=== PATIENT | female | born 1960 | race Hispanic/Latino ===

== ENCOUNTER 2020-01-30 19:12 | Emergency (ER) | payer SELFPAY ==
--- OUTSIDE RECORDS SUMMARY | 2020-01-30 19:14 | XMS REPORT ---
Author Author Admin, [place] Organization Unknown Address Unknown Phone Unavailable PROBLEMS Condition Status Date Provider Notes Vitamin D deficiency active Carter Gallardo Vaginal spotting active Carter Gallardo Rhinosinusitis, acute active Carter Gallardo Elevated creatinine active Carter Gallardo Abnormal cervical Pap ASCUS (atypical squamous cells undetermined significance) active Carter Gallardo 02/12/2019, HPV negative Osteoporosis active Carter Gallardo Lung nodule active Carter Gallardo Sicca syndrome active Carter Gallardo Sjogren's syndrome active Carter Gallardo Urge incontinence active Carter Gallardo Hypertension active Carter Gallardo Rheumatoid arthritis, chronic active Carter Gallardo BMI 22.0-22.9 active Carter Gallardo ENCOUNTERS Date Type Provider Location Encounter Diagnosis - Ambulatory Encounter Rickey Vicente [facility] OB UNK - Ambulatory Encounter Rickey Vicente [facility] OB UNK - Ambulatory Encounter Rickey Gainesce A Pearce [facility] OB UNK - Ambulatory Encounter Rekha A Pearce [facility] OB UNK - Ambulatory Encounter Rickey Gainesce A Pearce [facility] OB UNK - Ambulatory Encounter Florina Borges [facility] UNK - Ambulatory Encounter Carter Silva [facility] Vitamin D deficiency - Ambulatory Encounter Carter Valero [facility] UNK - Ambulatory Encounter Carter Gallardo [facility] UNK - Ambulatory Encounter Carter Hooverna [facility] Rhinosinusitis, acuteVaginal spotting - Ambulatory Encounter Carter Gallardo [facility] UNK - Ambulatory Encounter Saray Butler Carter Gallardo [facility] Elevated creatinine - Ambulatory Encounter Carter Valero Saray Butler [facility] - [facility] Carter Gallardo [facility] UNK - Ambulatory Encounter Carter Gallardo [facility] UNK - Ambulatory Encounter Carter Gallardo Lore Cervantes Tatiana [facility] BMI 22.0- 22.9Rheumatoid arthritis, chronicHypertensionUrge incontinenceSjogren's syndromeSicca syndromeLung noduleOsteoporosisAbnormal cervical Pap ASCUS (atypical squamous cells undetermined significance) VITAL SIGNS No Information Available Allergies No Known Allergy Information REASON FOR REFERRAL No Information Available RESULTS Date Observation Value Provider Reference Range Interpretation Location beta HCG, urine, semiquantitative negative Rekha A Pearce urine culture No growth [facility] " vitamin D 25-hydroxy, serum 15.8 ng/mL [facility] 30.0-100.0 Low " urinalysis, microscopic examination MICNIP [facility] " nitrate, urine Negative [facility] Negative " urobilinogen, urine, semiquantitative (dipstick) 0.2 [facility] 0.2-1.0 " bilirubin, urine Negative [facility] Negative " ketones, urine, by test strip Negative [facility] Negative " glucose, urine, semiquantitative Negative [facility] Negative " protein, urine, semiquantitative (dipstick) Negative [facility] Negative/Trace " leukocyte esterase, urine, by dipstick Negative [facility] Negative " appearance, urine Clear [facility] Clear " urine color Yellow [facility] Yellow " pH, urine, semiquantitative 7.0 [facility] 5.0-7.5 " specific gravity, body fluid 1.005 [facility] 1.005-1.030 " alanine aminotransferase (SGPT), serum 16 1/L [facility] 0-32 " aspartate aminotransferase (SGOT), serum 26 1/L [facility] 0-40 " alkaline phosphatase, serum 95 1/L [facility] 39-117 " bilirubin, serum, total <0.2 mg/dL [facility] 0.0-1.2 " albumin/globulin ratio, serum 1.1 [facility] 1.2-2.2 Low " globulin, serum 3.2 [facility] 1.5-4.5 " albumin, serum 3.6 g/dL [facility] 3.6-4.8 " protein, total, serum 6.8 g/dL [facility] 6.0-8.5 " calcium, serum 8.5 mg/dL [facility] 8.7-10.3 Low " carbon dioxide, venous blood 22 mmol/L [facility] 20-29 " chloride, serum 103 mmol/L [facility] 96-106 " potassium, serum 3.8 mmol/L [facility] 3.5-5.2 " sodium, serum 139 mmol/L [facility] 134-144 " urea nitrogen/creatinine ratio, serum 13 [facility] 12-28 " eGFR if 87 mL/min/((173/100).m2) [facility] >59 " Estimated Glomerular Filtration Rate (calc) 76 mL/min/((173/100).m2) [facility] >59 " creatinine, serum 0.84 mg/dL [facility] 0.57-1.00 " urea nitrogen, blood 11 mg/dL [facility] 8-27 " blood glucose, random 100 mg/dL [facility] 65-99 High " immature granulocytes, percentage of total cells, blood 0 % [facility] Not Estab. " basophil count, absolute 0.0 x10E3/uL [facility] 0.0-0.2 " Eosinophil Absolute Count 0.0 X10E3/UL [facility] 0.0-0.4 " monocyte count, blood, automated 0.1 X10E3/UL [facility] 0.1-0.9 " lymphocyte count, blood, automated 0.6 X10E3/UL [facility] 0.7-3.1 Low " Absolute Neutrophils 4.5 X10E3/UL [facility] 1.4-7.0 " basophils as percent of blood leukocytes 0 % [facility] Not Estab. " eosinophils as percent of blood leukocytes 0 % [facility] Not Estab. " monocytes as percent of blood leukocytes 1 % [facility] Not Estab. " lymphocytes as percent of blood leukocytes 11 % [facility] Not Estab. " neutrophils as percent of blood leukocytes 88 % [facility] Not Estab. " platelet count 254 X10E3/UL [facility] 150-450 " red blood cell distribution width 13.2 % [facility] 12.3-15.4 " mean corpuscular hemoglobin concentration, RBC 32.8 G/DL [facility] 31.5-35.7 " mean corpuscular hemoglobin, RBC 29.0 pg [facility] 26.6-33.0 " mean corpuscular volume, RBC 89 fL [facility] 79-97 " hematocrit, blood 36.0 % [facility] 34.0-46.6 " hemoglobin, blood 11.8 g/dL [facility] 11.1-15.9 " erythrocyte (RBC) count 4.07 X10E6/UL [facility] 3.77-5.28 " leukocyte count, blood 5.2 X10E3/UL [facility] 3.4-10.8 hemoglobin A1C, blood, as % of total hemoglobin 5.6 % [facility] 4.8-5.6 " Quantiferon Gold TB blood test for tuberculosis screening Negative [facility] Negative " LDL cholesterol, serum 58 mg/dL [facility] 0-99 " very low density lipoproteins 31 mg/dL [facility] 5-40 " HDL cholesterol, serum 58 mg/dL [facility] >39 " triglyceride, serum, fasting 153 mg/dL [facility] 0-149 High " cholesterol, serum 147 mg/dL [facility] 100-199 " alanine aminotransferase (SGPT), serum 10 1/L [facility] 0-32 " aspartate aminotransferase (SGOT), serum 19 1/L [facility] 0-40 " alkaline phosphatase, serum 101 1/L [facility] 39-117 " bilirubin, serum, total <0.2 mg/dL [facility] 0.0-1.2 " albumin/globulin ratio, serum 1.1 [facility] 1.2-2.2 Low " globulin, serum 3.3 [facility] 1.5-4.5 " albumin, serum 3.7 g/dL [facility] 3.6-4.8 " protein, total, serum 7.0 g/dL [facility] 6.0-8.5 " calcium, serum 9.0 mg/dL [facility] 8.7-10.3 " carbon dioxide, venous blood 25 mmol/L [facility] 20-29 " chloride, serum 104 mmol/L [facility] 96-106 " potassium, serum 4.7 mmol/L [facility] 3.5-5.2 " sodium, serum 140 mmol/L [facility] 134-144 " urea nitrogen/creatinine ratio, serum 12 [facility] 12-28 " eGFR if 62 mL/min/((173/100).m2) [facility] >59 " Estimated Glomerular Filtration Rate (calc) 54 mL/min/((173/100).m2) [facility] >59 Low " creatinine, serum 1.12 mg/dL [facility] 0.57-1.00 High " urea nitrogen, blood 13 mg/dL [facility] 8-27 " blood glucose, random 102 mg/dL [facility] 65-99 High " immature granulocytes, percentage of total cells, blood 1 % [facility] Not Estab. " basophil count, absolute 0.0 x10E3/uL [facility] 0.0-0.2 " Eosinophil Absolute Count 0.0 X10E3/UL [facility] 0.0-0.4 " monocyte count, blood, automated 0.0 X10E3/UL [facility] 0.1-0.9 Low " lymphocyte count, blood, automated 0.8 X10E3/UL [facility] 0.7-3.1 " Absolute Neutrophils 5.5 X10E3/UL [facility] 1.4-7.0 " basophils as percent of blood leukocytes 0 % [facility] Not Estab. " eosinophils as percent of blood leukocytes 1 % [facility] Not Estab. " monocytes as percent of blood leukocytes 1 % [facility] Not Estab. " lymphocytes as percent of blood leukocytes 12 % [facility] Not Estab. " neutrophils as percent of blood leukocytes 85 % [facility] Not Estab. " platelet count 313 X10E3/UL [facility] 150-450 " red blood cell distribution width 13.4 % [facility] 12.3-15.4 " mean corpuscular hemoglobin concentration, RBC 33.1 G/DL [facility] 31.5-35.7 " mean corpuscular hemoglobin, RBC 29.1 pg [facility] 26.6-33.0 " mean corpuscular volume, RBC 88 fL [facility] 79-97 " hematocrit, blood 35.9 % [facility] 34.0-46.6 " hemoglobin, blood 11.9 g/dL [facility] 11.1-15.9 " erythrocyte (RBC) count 4.09 X10E6/UL [facility] 3.77-5.28 " leukocyte count, blood 6.4 X10E3/UL [facility] 3.4-10.8 Human Papillomavirus test result Negative Carter Gallardo HISTORY OF IMMUNIZATIONS Date Vaccine Dose Lot Number Status Fluzone Quadrivalent IM PF 0.5 ML [facility] [address]-81 Sanofi Pasteur 0.5 mL [id number] completed HISTORY OF MEDICATION USE Medication Instructions Dates Provider Comments VITAMIN D (ERGOCALCIFEROL) 46871 UNIT ORAL CAPSULE One capsule by mouth once per week for 12 weeks - Carter Gallardo AMOXICILLIN-POT CLAVULANATE 875-125 MG ORAL TABLET 1 TABLET by mouth twice a day - Carter Gallardo LEFLUNOMIDE 20 MG ORAL TABLET Take 1 tablet daily Carter Gallardo OXYBUTYNIN CHLORIDE 5 MG ORAL TABLET one tablet by mouth daily Carter Gallardo MELOXICAM 7.5 MG ORAL TABLET Take 1 tablet dailly Carter Gallardo LISINOPRIL 40 MG ORAL TABLET 1 by mouth every day Carter Gallardo PREDNISONE 5 MG ORAL TABLET Take 1 tablet daily Carter Gallardo SOCIAL HISTORY Date Observation Value Provider Exercise Program Referral T Carter Gallardo " Weight Management Counseling Provided T Carter Gallardo " Nutrition intervention T Carter Gallardo " is there any chance that you could be ? No Tatiana Ricardo " passive cigarette smoke exposure No Tatiana Ricardo Exercise Program Referral T Carter Gallardo " Weight Management Counseling Provided T Carter Gallardo " Nutrition intervention T Carter Gallardo " is there any chance that you could be ? No Tatiana Ricardo " passive cigarette smoke exposure No Tatiana Ricardo FUNCTIONAL STATUS No Information Available MENTAL STATUS Date Observation Value Provider assessment of judgment and insight E&M intact Carter Gallardo " assessment of mood and affect E&M no depression, anxiety, or agitation Carter Gallardo " Generalized Anxiety Disorder Questionnaire - Question 2 0 Tatiana Ricardo " Generalized Anxiety Disorder Questionnaire - Question 1 0 Tatiana Ricardo assessment of judgment and insight E&M intact Carter Gallardo " assessment of mood and affect E&M no depression, anxiety, or agitation Carter Gallardo " Generalized Anxiety Disorder Questionnaire - Question 2 0 Tatiana Ricardo " Generalized Anxiety Disorder Questionnaire - Question 1 0 Tatiana Ricardo MEDICAL EQUIPMENT No Information Available FAMILY HISTORY No Information Available INSURANCE PROVIDERS Payer name Policy type / Coverage type Covered alliance party ID Sliding Fee - Cat 2 [employer] insurance [employer] [id number] ADVANCE DIRECTIVES No Information Available TREATMENT PLAN Date Name Vitamin D, 25-Hydroxy Urine Culture, Routine Urinalysis with Micro on Positives Comp. Metabolic Panel (14) CBC With Differential/Platelet QuantiFERON TB Gold Plus Hemoglobin A1c Lipid Panel Comp. Metabolic Panel (14) CBC With Differential/Platelet - Ultrasound, transvaginal Est Patient Detailed - 06242 Vaccines Ordered - Print Consent/Declination Forms Handling of specimen for transfer Venipuncture New Patient Detailed - 48627 HISTORY OF PROCEDURES Procedure Date Procedure Name Provider Procedure Notes Status Ultrasound, transvaginal Rickey Vicente Reason: Hx of Vaginal Spotting __ Anatomy Scan __ BPP __ Growth __ Dating __ Other completed Vaccines Ordered - Print Consent/Declination Forms Carter Gallardo completed Venipuncture Carter Gallardo completed GOALS No Information Available HEALTH CONCERNS No Information Available
--- OUTSIDE RECORDS SUMMARY | 2020-01-30 19:14 | XMS REPORT ---
Author Author Admin, [place] Organization Unknown Address Unknown Phone Unavailable PROBLEMS Condition Status Date Provider Notes Vaginal spotting active Carter Gallardo Rhinosinusitis, acute [...] Provider Location Encounter Diagnosis - Ambulatory Encounter Carter Gallardo [facility] UNK - Ambulatory Encounter Carter Castelanyes [facility] Rhinosinusitis, acuteVaginal spotting - Ambulatory Encounter Carter Gallardo [facility] UNK - Ambulatory Encounter Saray Butler Carter Gallardo [facility] Elevated creatinine - Ambulatory Encounter Carter Gallardo [facility] Saray Butler [facility] UNK - Ambulatory [facility] - Ambulatory Encounter Carter Gallardo [facility] UNK - Ambulatory Encounter [facility] - Ambulatory Encounter Carter Gallardo [facility] UNK - Ambulatory Encounter Carter Gallardo [facility] UNK - Ambulatory Encounter Carter Torrez Cervantes Tatiana Ricardo [facility] BMI 22.0- 22.9Rheumatoid arthritis, chronicHypertensionUrge incontinenceSjogren's syndromeSicca syndromeLung noduleOsteoporosisAbnormal cervical Pap ASCUS (atypical squamous cells undetermined significance) VITAL SIGNS No Information Available Allergies No Known Allergy Information REASON FOR REFERRAL No Information Available RESULTS Date Observation Value Provider Reference Range Interpretation Location hemoglobin A1C, blood, as % of total [...] Fluzone Quadrivalent IM PF 0.5 ML [facility] [address]-90 Sanofi Pasteur 0.5 mL [id number] completed HISTORY OF MEDICATION USE Medication Instructions Dates Provider Comments AMOXICILLIN-POT CLAVULANATE 875-125 MG ORAL TABLET 1 [...] Ricardo " passive cigarette smoke exposure No Tatianakayli Diass Exercise Program Referral T Carter Gallardo " Weight Management Counseling Provided T Carter Gallardo " Nutrition intervention T Carter Gallardo " is there any chance that you could be ? No Tatiana Ricardo " passive cigarette smoke exposure No Tatiana Silva FUNCTIONAL STATUS No Information Available MENTAL STATUS [...] name Policy type / Coverage type Covered democrat ID Sliding Fee - Cat 2 [employer] insurance [employer] [id number] ADVANCE DIRECTIVES No Information Available TREATMENT PLAN Date Name Vitamin D, 25-Hydroxy Urine Culture, Routine Urinalysis with Micro on Positives Comp. Metabolic Panel (14) CBC With Differential/Platelet QuantiFERON TB Gold Plus Hemoglobin A1c Lipid Panel Comp. Metabolic Panel (14) CBC With Differential/Platelet Est Patient Detailed - 19186 Vaccines Ordered - Print Consent/Declination Forms Handling of specimen for transfer Venipuncture New Patient Detailed - 24344 HISTORY OF PROCEDURES Procedure Date Procedure Name Provider Procedure Notes Status Vaccines Ordered - Print Consent/Declination Forms Carter Gallardo completed Venipuncture Carter Gallardo completed GOALS No Information Available HEALTH CONCERNS No Information Available
--- OUTSIDE RECORDS SUMMARY | 2020-01-30 19:14 | XMS REPORT ---
Author Author Admin, [place] Organization Unknown Address Unknown Phone Unavailable PROBLEMS [...] Location Encounter Diagnosis - Ambulatory Encounter Carter Gallarod [facility] UNK - Ambulatory Encounter Carter Castelanyes [facility] Rhinosinusitis, acuteVaginal spotting - Ambulatory Encounter Carter Gallardo [facility] UNK - Ambulatory Encounter Saray Butler Carter Gallardo [facility] Elevated creatinine - Ambulatory Encounter Carter Gallardo [facility] Saray Butler [facility] UNK - Ambulatory [facility] - Ambulatory Encounter Carter Gallardo [facility] UNK - Ambulatory [facility] - Ambulatory Encounter Carter Gallardo [facility] UNK - Ambulatory Encounter Carter Gallardo [facility] UNK - Ambulatory Encounter Carter Torrez Cervantes Tatiana Ricardo [facility] BMI 22.0- 22.9Rheumatoid arthritis, chronicHypertensionUrge incontinenceSjogren's syndromeSicca [...] Fluzone Quadrivalent IM PF 0.5 ML [facility] [address]-80 Sanofi Pasteur 0.5 mL [id number] completed HISTORY OF MEDICATION USE Medication Instructions [...] name Policy type / Coverage type Covered constitution party ID Sliding Fee - Cat [address] insurance [email or web address] [id number] ADVANCE DIRECTIVES No Information Available TREATMENT PLAN Date Name Vitamin D, 25-Hydroxy Urine Culture, Routine Urinalysis with Micro on Positives Comp. Metabolic Panel (14) CBC With Differential/Platelet QuantiFERON TB Gold Plus Hemoglobin A1c Lipid Panel Comp. Metabolic Panel (14) CBC With Differential/Platelet Est Patient Detailed - 51142 Vaccines Ordered - Print Consent/Declination Forms Handling of specimen for transfer Venipuncture New Patient Detailed - 59014 HISTORY OF PROCEDURES Procedure Date Procedure Name Provider Procedure Notes Status Vaccines Ordered - Print Consent/Declination Forms Carter Gallardo completed Venipuncture Carter Gallardo completed GOALS No Information Available HEALTH CONCERNS No Information Available
--- OUTSIDE RECORDS SUMMARY | 2020-01-30 19:14 | XMS REPORT ---
Author Author Admin, [place] Organization Unknown Address Unknown Phone Unavailable PROBLEMS [...] Carter Gallardo Rheumatoid arthritis, chronic active Carter Galalrdo BMI 22.0-22.9 active Carter Gallardo ENCOUNTERS Date Type Provider Location Encounter Diagnosis - Ambulatory Encounter Florina Castaneda Jesica Borges [employer] - [facility] Carter Gallardo [facility] UNK - Ambulatory Encounter Carter Gallardo [facility] UNK [facility]in[facility], acuteVaginal spotting - Ambulatory Encounter Carter Gallardo [facility] UNK - Ambulatory Encounter Saray Butler Carter Gallardo [facility] Elevated creatinine - Ambulatory Encounter Carter Gallardo [facility] Saray Butler [facility] UNK - Ambulatory Encounter Carter Valero [facility] UNK - Ambulatory Encounter Carter Gallardo [facility] UNK - [facility] Encounter Carter Gallardo [facility] UNK - Ambulatory Encounter Carter Gallardo [facility] UNK - Ambulatory Encounter Carter Gallardo Loredonovan Silva [facility] BMI 22.0- 22.9Rheumatoid arthritis, chronicHypertensionUrge incontinenceSjogren's syndromeSicca syndromeLung noduleOsteoporosisAbnormal cervical Pap ASCUS (atypical squamous cells undetermined significance) VITAL SIGNS No Information Available Allergies No Known Allergy Information REASON FOR REFERRAL Start Date - End Date Service Ultrasound - Transvaginal RESULTS Date Observation Value Provider Reference Range Interpretation Location urine culture No growth [facility] " vitamin [...] Status Fluzone Quadrivalent IM PF 0.5 ML [facility] [address]-81 Sanofi Pasteur 0.5 mL [id number] completed HISTORY OF MEDICATION USE Medication Instructions Dates Provider Comments VITAMIN D (ERGOCALCIFEROL) 87805 UNIT ORAL CAPSULE One capsule by mouth [...] name Policy type / Coverage type Covered libertarian ID Sliding Fee - Cat 2 [employer] insurance [employer] [id number] ADVANCE DIRECTIVES No Information Available TREATMENT PLAN Date Name Vitamin D, 25-Hydroxy Urine Culture, Routine Urinalysis with Micro on Positives Comp. Metabolic Panel (14) CBC With Differential/Platelet QuantiFERON TB Gold Plus Hemoglobin A1c Lipid Panel Comp. Metabolic Panel (14) CBC With Differential/Platelet Est Patient Detailed - 69765 Vaccines Ordered - Print Consent/Declination Forms Handling of specimen for transfer Venipuncture New Patient Detailed - 72909 HISTORY OF PROCEDURES Procedure Date Procedure Name Provider Procedure Notes Status Vaccines Ordered - Print Consent/Declination Forms Carter Gallardo completed Venipuncture Carter Gallardo completed GOALS No Information Available HEALTH CONCERNS No Information Available
--- OUTSIDE RECORDS SUMMARY | 2020-01-30 19:14 | XMS REPORT ---
Author Author Admin, [place] Organization Unknown Address Unknown Phone Unavailable PROBLEMS Condition Status Date Provider Notes Abnormal cervical Pap ASCUS (atypical squamous cells [...] Encounter Diagnosis - Ambulatory Encounter Carter Gallardo [facility] Carter Gallardo [facility] BMI 22.0- 22.9Rheumatoid arthritis, chronicHypertensionUrge incontinenceSjogren's syndromeSicca syndromeLung noduleOsteoporosisAbnormal cervical Pap ASCUS (atypical squamous cells undetermined significance) VITAL SIGNS No Information Available Allergies No Known Allergy Information REASON FOR REFERRAL No Information Available RESULTS Date Observation Value Provider Reference Range Interpretation Location Human Papillomavirus test result Negative Carter Gallardo HISTORY OF IMMUNIZATIONS Date Vaccine Dose Lot Number Status Fluzone [facility]riv[facility] [address]-08 Mattofi Pasteur 0.5 mL [id number] completed HISTORY OF MEDICATION USE Medication Instructions Dates Provider Comments LEFLUNOMIDE 20 MG ORAL TABLET Take 1 [...] name Policy type / Coverage type Covered green party ID Sliding Fee - Cat 2 Commercial insurance company [id number] ADVANCE DIRECTIVES No Information Available TREATMENT PLAN Date Name QuantiFERON TB Gold Plus Hemoglobin A1c Lipid Panel Comp. Metabolic Panel (14) CBC With Differential/Platelet Vaccines Ordered - Print Consent/Declination Forms Handling of specimen for transfer Venipuncture New Patient Detailed - 11228 HISTORY OF PROCEDURES Procedure Date Procedure Name Provider Procedure Notes Status Vaccines Ordered - Print Consent/Declination Forms Carter Gallardo completed Venipuncture Carter Gallardo completed GOALS No Information Available HEALTH CONCERNS No Information Available
--- OUTSIDE RECORDS SUMMARY | 2020-01-30 19:14 | XMS REPORT ---
Author Author Admin, [place] Organization Unknown Address Unknown Phone Unavailable PROBLEMS [...] Encounter Diagnosis - Ambulatory Encounter Rickey Vicente Rekha A Pearce [facility] UNK - Ambulatory Encounter Rekha A [facility]ce [facility] UN[facility] - Ambulatory Encounter Rickey Vicente Rekha A Pearce [facility] OB UNK - Ambulatory Encounter Florina Borges [employer] UNK - Ambulatory Encounter Carter Silva [facility] Vitamin D deficiency - Ambulatory Encounter [facility] Carter Gallardo [facility] UNK - Ambulatory Encounter Carter Simpson [facility] Rhinosinusitis, acuteVaginal spotting - Ambulatory Encounter Carter Gallardo [facility] UNK - Ambulatory Encounter Saray Butler Carter Gallardo [facility] Elevated creatinine - Ambulatory Encounter Carter Valero Saray Butler [facility] UNK - Ambulatory Encounter Carter Gallardo [facility] UNK - Ambulatory Encounter Carter Gallardo [facility] Carter Gallardo [facility] UNK - Ambulatory Encounter Carter Gallardo [facility] UNK - Ambulatory Encounter Carter Gallardo Loredonovan Simpson [facility] BMI 22.0- 22.9Rheumatoid arthritis, chronicHypertensionUrge incontinenceSjogren's [...] Quadrivalent IM PF 0.5 ML [facility] [address]-28 Sanofi Pasteur 0.5 mL [id number] completed HISTORY OF MEDICATION USE Medication Instructions Dates Provider Comments VITAMIN D (ERGOCALCIFEROL) 30217 UNIT ORAL CAPSULE One capsule by mouth [...] libertarian ID Sliding Fee - Cat 2 [employer] insurance [employer] [id number] ADVANCE DIRECTIVES No Information Available TREATMENT PLAN Date Name Vitamin D, 25-Hydroxy Urine Culture, Routine Urinalysis with Micro on Positives Comp. Metabolic Panel (14) CBC With Differential/Platelet QuantiFERON TB Gold Plus Hemoglobin A1c Lipid Panel Comp. Metabolic Panel (14) CBC With Differential/Platelet Ultrasound, transvaginal Est Patient Detailed - 52279 Vaccines Ordered - Print Consent/Declination Forms Handling of specimen for transfer Venipuncture New Patient Detailed - 79529 HISTORY OF PROCEDURES Procedure Date Procedure Name Provider Procedure Notes Status Ultrasound, transvaginal Rickey Vicente Reason: Hx of Vaginal Spotting __ Anatomy Scan __ BPP __ Growth __ Dating __ Other completed Vaccines Ordered - Print Consent/Declination Forms Carter Gallardo completed Venipuncture Carter Gallardo completed GOALS No Information Available HEALTH CONCERNS No Information Available
--- OUTSIDE RECORDS SUMMARY | 2020-01-30 19:14 | XMS REPORT ---
Author Author Admin, [place] Organization Unknown Address Unknown Phone Unavailable PROBLEMS Condition Status Date Provider Notes Elevated creatinine active Carter Gallardo Abnormal cervical [...] Encounter Diagnosis - Ambulatory Encounter Carter Gallardo [facility] UNK - Ambulatory Encounter Saray Gallardo [facility] Elevated creatinine - Ambulatory Encounter Carter Gallardo [employer] Saray Butler [facility] UNK - Ambulatory Encounter Carter Gallardo [employer] [facility] UNK - Ambulatory Encounter Carter Gallardo [facility] UNK - Ambulatory Encounter Carter Gallardo [employer] [facility] UNK - Ambulatory Encounter Carter Gallardo [facility] UNK - Ambulatory Encounter Carter Gallardo [facility] UNK - Ambulatory Encounter Carter Gallardo Lore Silva [facility] BMI 22.0- 22.9Rheumatoid arthritis, chronicHypertensionUrge incontinenceSjogren's [...] Status Fluzone Quadrivalent IM PF 0.5 ML [facility] [address]-73 Sanofi Pasteur 0.5 mL [id number] completed HISTORY OF MEDICATION USE Medication Instructions [...] party ID Sliding Fee - Cat 2 [employer] [id number] ADVANCE DIRECTIVES No Information Available TREATMENT PLAN Date Name QuantiFERON TB Gold Plus Hemoglobin A1c Lipid Panel Comp. Metabolic Panel (14) CBC With Differential/Platelet Vaccines Ordered - Print Consent/Declination Forms Handling of specimen for transfer Venipuncture New Patient Detailed - [id number] HISTORY OF PROCEDURES Procedure Date Procedure Name Provider Procedure Notes Status Vaccines Ordered - Print Consent/Declination Forms Carter Gallardo completed Venipuncture Carter Gallardo completed GOALS No Information Available HEALTH CONCERNS No Information Available
--- OUTSIDE RECORDS SUMMARY | 2020-01-30 19:14 | XMS REPORT ---
Author Author Admin, [place] Organization Unknown Address Unknown Phone Unavailable PROBLEMS [...] Encounter Diagnosis - Ambulatory Encounter Carter Gallardo [facility] UNK - Ambulatory Encounter Carter Gallardo [facility] UNK - Ambulatory Encounter Carter Gallardo [facility] UNK - Ambulatory Encounter Carter Gallardo [facility] UNK - Ambulatory Encounter Carter Gallardo [facility] UNK - Ambulatory Encounter Carter Gallardo Loredonovan Silva [facility] BMI 22.0- 22.9Rheumatoid arthritis, chronicHypertensionUrge incontinenceSjogren's syndromeSicca [...] Status Fluzone Quadrivalent IM PF 0.5 ML [facility] [address]-53 Sanofi Pasteur 0.5 mL [id number] completed HISTORY OF MEDICATION USE Medication Instructions [...] party ID Sliding Fee - Cat 2 [employer] insurance [employer] [id number] ADVANCE DIRECTIVES No Information Available TREATMENT PLAN Date Name QuantiFERON TB Gold Plus Hemoglobin A1c Lipid Panel Comp. Metabolic Panel (14) CBC With Differential/Platelet Vaccines Ordered - Print Consent/Declination Forms Handling of specimen for transfer Venipuncture New Patient Detailed - [id number] HISTORY OF PROCEDURES Procedure Date Procedure Name Provider Procedure Notes Status Vaccines Ordered - Print Consent/Declination Forms Carter Gallardo completed Venipuncture Carter Gallardo completed GOALS No Information Available HEALTH CONCERNS No Information Available
--- OUTSIDE RECORDS SUMMARY | 2020-01-30 19:15 | XMS REPORT ---
Author Author Admin, [place] Organization Unknown Address Unknown Phone Unavailable PROBLEMS Condition Status Date Provider Notes Cataract, bilateral active Carter Kade Dry eye syndrome, bilateral active Carter Kade Presbyopia - OU active Carter Kade Astigmatism, bilateral active Carter Kade Hyperopia, bilateral active Carter Kade Allergic rhinitis active Carter Gallardo Vitamin D deficiency active Carter Gallardo Vaginal spotting active Carter Gallardo Rhinosinusitis, acute completed - Carter Gallardo Elevated creatinine active Carter Gallardo [...] Location Encounter Diagnosis - Ambulatory Encounter Carter Kade Carter Kade [facility] UNK - Ambulatory Encounter Carter Kade Carter Kade [facility] UNK - Ambulatory Encounter Carter Kade Carter Kade [facility] UNK - Ambulatory Encounter Carter Kade Carter Kade Viola Moralez [facility] Hyperopia, bilateralAstigmatism, bilateralPresbyopia - OUDry eye syndrome, bilateralCataract, bilateral - Ambulatory Encounter Carter Gallardo [facility] UNK - Ambulatory Encounter Carter Cook [facility] Rhinosinusitis, acuteAllergic rhinitis - Ambulatory Encounter Carter Gallardo [facility] UNK - Ambulatory Encounter Saray Butler [facility] UNK - Ambulatory Encounter Rickey Vicente [facility] OB UNK - Ambulatory Encounter Rickey Cheema [place] [facility] OB UNK - Ambulatory Encounter Rickey Vicente Rekha A Pearce [facility] OB UNK - Ambulatory Encounter Rekha A Pearce [facility] OB UNK - Ambulatory Encounter Rickey Vicente Rekha A Pearce [facility] OB UNK - Ambulatory Encounter Florina Borges [employer] UNK - [facility] - Ambulatory Encounter Carter Gallardo [employer] Yasmin Ortega [facility] UNK - Ambulatory Encounter Carter Gallardo [facility] UNK - Ambulatory Encounter Carter Diass [facility] Rhinosinusitis, acuteVaginal spotting - Ambulatory Encounter Carter Gallardo [facility] UNK - Ambulatory Encounter Saray Gallardo [facility] Elevated creatinine - Ambulatory Encounter Carter Gallardo [facility] UNK [facility] Carter Gallardo [facility] UNK - Ambulatory Encounter Carter Gallardo [facility] UNK - Ambulatory Encounter Carter Gallardo [facility] UNK - Ambulatory Encounter Carter Gallardo [facility] UNK - Ambulatory Encounter Carter Puentesadadonovan Silva [facility] BMI 22.0- 22.9Rheumatoid arthritis, chronicHypertensionUrge incontinenceSjogren's syndromeSicca syndromeLung noduleOsteoporosisAbnormal cervical Pap ASCUS (atypical squamous cells undetermined significance) VITAL SIGNS Date Observation Value Provider respiratory rate E&M 16 /min Yasmin Ortega " temperature E&M 98.1 [degF] Yasmin Ortega " pulse rate E&M 69 /min Yasmin Ortega " oxygen saturation, oximetry 98 % Yasmin Ortega " blood pressure, diastolic 78 mm[Hg] Yasmin Ortega " blood pressure, systolic 136 mm[Hg] Yasmin Ortega " weight E&M 113 lbs. Yasmin Ortega " weight in kilograms E&M 51.36 kg Yasmin Ortega " method used to obtain blood pressure automatic Yasmin Ortega " Blood Pressure Position 01 sitting Yasmin Ortega " blood pressure, site #1 left arm Yasmin Ortega " temperature site oral Yasmin Ortega " height E&M 60 [in_i] Yasmin Ortega " height in centimeters E&M 152.40 cm Yasmin Ortega method used to obtain blood pressure manual Rekha A Pearce " Blood Pressure Position 01 sitting Rekha A Pearce " blood pressure, site #1 right arm Rekha A Pearce " blood pressure, diastolic 80 mm[Hg] Rekha A Pearce " blood pressure, systolic 169 mm[Hg] Rekha A Pearce " pulse rate E&M 73 /min Rekha A Pearce " temperature E&M 99.2 [degF] Rekha A Pearce " weight E&M 112.50 lbs. Rekha A Pearce " weight in kilograms E&M 51.14 kg Rekha A Pearce " height in centimeters E&M 152.40 cm Rekha A Pearce " height E&M 60 [in_i] Rekha A Pearce " temperature site oral Rekha A Pearce BP diastolic #1 78 mm[Hg] Carter Gallardo " BP systolic #1 165 mm[Hg] Carter Gallardo " blood pressure, diastolic, third observation 79 mm[Hg] Tatiana Ricardo " blood pressure, systolic, third observation 156 mm[Hg] Tatiana Ricardo " blood pressure, diastolic, second observation 79 mm[Hg] Tatiana Ricardo " blood pressure, systolic, second observation 160 mm[Hg] Tatiana Ricardo " method used to obtain blood pressure automatic Tatiana Ricardo " Blood Pressure Position 01 sitting Tatiana Ricardo " blood pressure, site #1 left arm Tatiana Ricardo " blood pressure, diastolic 79 mm[Hg] Carter Gallardo " blood pressure, systolic 156 mm[Hg] Carter Gallardo " respiratory rate E&M 17 /min Tatiana Ricardo " oxygen saturation, oximetry 98 % Tatiana Ricardo " pulse rate E&M 81 /min Tatiana Ricardo " temperature site oral Tatiana Ricardo " temperature E&M 98.5 [degF] Tatiana Ricardo " height E&M 61 [in_i] Tatiana Ricardo " height in centimeters E&M 154.94 cm Tatiana Ricardo " weight E&M 113.25 lbs. Tatiana Ricardo " weight in kilograms E&M 51.48 kg Tatiana Silva blood pressure, diastolic 66 mm[Hg] Tatiana Diass " blood pressure, systolic 120 mm[Hg] Tatiana Diass " method used to obtain blood pressure automatic Tatiana Ricardo " Blood Pressure Position 01 sitting Tatiana Diass " blood pressure, site #1 right arm Tatiana Silva " oxygen saturation, oximetry 97 % Tatiana Silva " respiratory rate E&M 18 /min Tatiana Diass " pulse rate E&M 68 /min Tatiana Diass " temperature site oral Tatiana Silva " temperature E&M 98.6 [degF] Tatiana Silva " weight E&M 116 lbs. Tatiana Silva " weight in kilograms E&M 52.73 kg Tatiana Silva " height E&M 61 [in_i] Tatiana Silva " height in centimeters E&M 154.94 cm Tatiana Silva Allergies No Known Allergy Information REASON FOR [...] Status Fluzone Quadrivalent IM PF 0.5 ML [facility] [id number] Sanofi Pasteur 0.5 mL [id number] completed HISTORY OF MEDICATION USE Medication Instructions Dates Provider Comments AMLODIPINE BESYLATE 5 MG ORAL TABLET 1 tab by mouth daily Carter Gallardo FLONASE ALLERGY RELIEF 50 MCG/ACT NASAL SUSPENSION 1 sprays each nostril every day Carter Gallardo CETIRIZINE HCL 10 MG ORAL TABLET Take 1 tablet daily Carter Gallardo HYDROCHLOROTHIAZIDE 12.5 MG ORAL CAPSULE 1 by mouth every day - Carter Gallardo VITAMIN D (ERGOCALCIFEROL) 53041 UNIT ORAL CAPSULE One capsule by mouth [...] every day Carter Gallardo PREDNISONE 5 MG TABLET TAKE ONE TABLET BY MOUTH DAILY Carter Gallardo SOCIAL HISTORY Date Observation Value Provider Exercise Program Referral T Carter Gallardo " Weight Management Counseling Provided T Carter Gallardo " Nutrition intervention T Carter Gallardo " drug use, illicit Never Yasmin Jordan " alcohol use Never Yasmin Ortega " is there any chance that you could be ? No Yasmin Jordan " passive cigarette smoke exposure No Yasmin Jordan " smoking status never smoker Yasmin Jordan Exercise Program Referral T Carter Gallardo " Weight Management Counseling Provided T Carter Gallardo " Nutrition intervention T Carter Gallardo " is there any chance that you could be ? No Tatiana Diass " passive cigarette smoke exposure No Tatiana Diass Exercise Program Referral T Carter Gallardo " Weight Management Counseling Provided T Carter Gallardo " Nutrition intervention T Carter Gallardo " is there any chance that you could be ? No Tatiana Silva " passive cigarette smoke exposure No Tatiana Silva FUNCTIONAL STATUS No Information Available MENTAL STATUS Date Observation Value Provider assessment of mood and affect E&M good eye contact, normal affect [facility] " mental status examination: orientation E&M alert and oriented to person, place, and time [facility] assessment of judgment and insight E&M intact Carter Gallardo " assessment of mood and affect E&M no depression, anxiety, or agitation Carter Gallardo " Generalized Anxiety Disorder Questionnaire - Question 2 0 Yasmin Jordan " Generalized Anxiety Disorder Questionnaire - Question 1 0 Yasmin Ortega assessment of judgment and insight E&M intact Carter Gallardo " assessment of mood and affect E&M no depression, anxiety, or agitation Carter Gallardo " Generalized Anxiety Disorder Questionnaire - Question 2 0 Tatiana Silva " Generalized Anxiety Disorder Questionnaire - Question 1 0 Tatiana Silva assessment of judgment and insight E&M intact Carter Gallardo " assessment of mood and affect E&M no depression, anxiety, or agitation Carter Gallardo " Generalized Anxiety Disorder Questionnaire - Question 2 0 Tatiana Silva " Generalized Anxiety Disorder Questionnaire - Question 1 0 Tatiana Silva MEDICAL EQUIPMENT No Information Available FAMILY HISTORY No Information Available INSURANCE PROVIDERS Payer name Policy type / Coverage type Covered libertarian ID Sliding Fee - Cat 2 [employer] insurance [employer] [id number] ADVANCE DIRECTIVES No Information Available TREATMENT PLAN Date Name Vitamin D, 25-Hydroxy Urine Culture, Routine Urinalysis with Micro on Positives Comp. Metabolic Panel (14) CBC With Differential/Platelet QuantiFERON TB Gold Plus Hemoglobin A1c Lipid Panel Comp. Metabolic Panel (14) CBC With Differential/Platelet - Routine ophthalmological examination including refraction; new patient Est Patient Detailed - 35390 Vision Ultrasound, transvaginal Est Patient Detailed - 88135 Vaccines Ordered - Print Consent/Declination Forms Handling of specimen for transfer Venipuncture New Patient Detailed - 19372 HISTORY OF PROCEDURES Procedure Date Procedure Name Provider Procedure Notes Status Routine ophthalmological examination including refraction; new patient Carter Braun completed Ultrasound, transvaginal Rickey Vicente Reason: Hx of Vaginal Spotting __ Anatomy Scan __ BPP __ Growth __ Dating __ Other completed Vaccines Ordered - Print Consent/Declination Forms Carter Gallardo completed Venipuncture Carter Gallardo completed GOALS No Information Available HEALTH CONCERNS No Information Available
--- OUTSIDE RECORDS SUMMARY | 2020-01-30 19:15 | XMS REPORT ---
Author Author Admin, [place] Organization Unknown Address Unknown Phone Unavailable PROBLEMS [...] Ambulatory Encounter Carter Kade Carter Kade [facility] UNK - Ambulatory Encounter Carter Kade Carter Kade [facility] UNK - Ambulatory Encounter Carter Kade Carter Kade [facility] UNK - Ambulatory Encounter Carter Kade Carter Kade Viola Moralez [facility] Hyperopia, bilateralAstigmatism, bilateralPresbyopia - OUDry eye syndrome, bilateralCataract, bilateral - Ambulatory Encounter Carter Gallardo [facility] UNK - Ambulatory Encounter Carter Cook [facility] Rhinosinusitis, acuteAllergic rhinitis - Ambulatory Encounter Carter Gallardo [facility] UNK - Ambulatory Encounter Saray Butler [facility] UNK - Ambulatory Encounter Rickey Vicente [facility] OB UNK - Ambulatory Encounter Rickey Cheema [place] [employer] OB UNK - Ambulatory Encounter Rickey Vicente Rekha A Pearce [facility] OB UNK - Ambulatory Encounter Rekha A Pearce [facility] OB UNK - Ambulatory Encounter Rickey Vicente Rekha A Pearce [facility] OB UNK - Ambulatory Encounter Florina Borges [employer] UNK - [facility] - [facility] Encounter Carter Gallardo [employer] Yasmin Ortega [facility] UNK - Ambulatory Encounter Carter Gallardo [facility] UNK - Ambulatory Encounter Carter Diass [facility] Rhinosinusitis, acuteVaginal spotting - Ambulatory Encounter Carter Gallardo [facility] UNK - Ambulatory Encounter Saray Gallardo [facility] Elevated creatinine - Ambulatory Encounter Carter Gallardo [facility] UNK - [facility] Carter Gallardo [facility] UNK - Ambulatory Encounter Carter Gallardo [facility] UNK - Ambulatory Encounter Carter Gallardo [facility] UNK - Ambulatory Encounter Carter Gallardo [facility] UNK - Ambulatory Encounter Carter Puentesadadonovan Silva [facility] BMI 22.0- 22.9Rheumatoid arthritis, chronicHypertensionUrge incontinenceSjogren's [...] Pearce " Blood Pressure Position 01 sitting Rehka A Pearce " blood pressure, site #1 [...] Status Fluzone Quadrivalent IM PF 0.[address] [facility] [address]-17 Sanofi Pasteur 0.5 mL [id number] completed HISTORY OF MEDICATION USE Medication Instructions [...] day - Carter Gallardo VITAMIN D (ERGOCALCIFEROL) 32547 UNIT ORAL CAPSULE One capsule by mouth [...] affect E&M good eye contact, normal affect [facility] " mental status examination: orientation E&M alert and oriented to person, place, and time [facility] assessment of judgment and insight E&M intact [...] party ID Sliding Fee - Cat 2 [employer] insurance [employer] [id number] ADVANCE DIRECTIVES No Information Available TREATMENT PLAN Date Name Vitamin D, 25-Hydroxy Urine Culture, Routine Urinalysis with Micro on Positives Comp. Metabolic Panel (14) CBC With Differential/Platelet QuantiFERON TB Gold Plus Hemoglobin A1c Lipid Panel Comp. Metabolic Panel (14) CBC With Differential/Platelet - Routine ophthalmological examination including refraction; new patient Est Patient Detailed - 79065 Vision Ultrasound, transvaginal Est Patient Detailed - 76506 Vaccines Ordered - Print Consent/Declination Forms Handling of specimen for transfer Venipuncture New Patient Detailed - 10597 HISTORY OF PROCEDURES Procedure Date Procedure Name [...]
--- OUTSIDE RECORDS SUMMARY | 2020-01-30 19:15 | XMS REPORT ---
Author Author Admin, [place] Organization Unknown Address Unknown Phone Unavailable PROBLEMS Condition Status Date Provider Notes Allergic rhinitis active Carter Gallardo Vitamin D [...] Urge incontinence active Carter Gallardo Hypertension active Catrer Gallardo Rheumatoid arthritis, chronic active Carter Gallardo BMI 22.0-22.9 active Carter Gallardo ENCOUNTERS Date Type Provider Location Encounter Diagnosis - Ambulatory Encounter Carter Gallardo [facility] UNK - Ambulatory Encounter Carter Ortega [facility] Rhinosinusitis, acuteAllergic rhinitis - Ambulatory Encounter Carter Gallardo [facility] UNK - Ambulatory Encounter Saray Butler [facility] UNK - Ambulatory Encounter Rickey Vicente [facility] OB UNK - Ambulatory Encounter Rickey Vicente [facility] OB UNK - Ambulatory Encounter Rickey Da Silva A Pearce [facility] OB UNK - Ambulatory Encounter Rekha A Pearce [facility] OB UNK - Ambulatory Encounter Rickey Da Silva A Pearce [facility] OB UNK - Ambulatory Encounter Florina [place] [employer] UNK - Ambulatory Encounter Yasmin Gradyza Tatiana Silva [facility] Vitamin D deficiency - Ambulatory Encounter Carter Ortega [facility] UNK - Ambulatory Encounter Carter Gallardo [facility] UNK [facility], acuteVaginal spotting - Ambulatory Encounter Carter Gallardo [facility] UNK - Ambulatory Encounter Saray Butleralonso Gallardo [facility] Elevated creatinine - Ambulatory Encounter Carter Valero [facility] - Ambulatory Encounter Carter Gallardo [facility] UNK - Ambulatory Encounter Carter Domingoic [facility] UNK - Ambulatory Encounter Carter Gallardo [facility] UNK - Ambulatory Encounter Carter Gallardo [facility] UNK - Ambulatory Encounter Carter Gallardo Lore Silva [facility] BMI 22.0- 22.9Rheumatoid arthritis, chronicHypertensionUrge [...] weight in kilograms E&M 51.48 kg Tatiana Ricardo blood pressure, diastolic 66 mm[Hg] Tatiana Ricardo " blood pressure, systolic 120 mm[Hg] Tatiana Ricardo " method used to obtain blood pressure automatic Tatiana Ricardo " Blood Pressure Position 01 sitting Tatiana Ricardo " blood pressure, site #1 right arm Tatiana Ricardo " oxygen saturation, oximetry 97 % Tatiana Ricardo " respiratory rate E&M 18 /min Tatiana Ricardo " pulse rate E&M 68 /min Tatiana Ricardo " temperature site oral Tatiana Ricardo " temperature E&M 98.6 [degF] Tatiana Ricardo " weight E&M 116 lbs. Tatiana Ricardo " weight in kilograms E&M 52.73 kg Tatiana Ricardo " height E&M 61 [in_i] Tatiana Ricardo " height in centimeters E&M 154.94 cm Tatiana Ricardo Allergies No Known Allergy Information REASON FOR REFERRAL No Information Available RESULTS Date Observation Value Provider Reference Range Interpretation Location beta HCG, urine, semiquantitative negative Rekha Pearce urine culture No growth [facility] " [...] Fluzone Quadrivalent IM PF 0.[address] [facility] [address]-96 Sanofi Pasteur 0.5 mL [id number] completed HISTORY OF MEDICATION USE Medication Instructions Dates Provider Comments AMLODIPINE BESYLATE 5 MG ORAL TABLET 1 tab by mouth daily Carter Gallardo FLONASE ALLERGY RELIEF 50 MCG/ACT NASAL SUSPENSION 1 sprays each nostril every day Carter Gallardo CETIRIZINE HCL 10 MG ORAL TABLET Take 1 tablet daily Carter Gallrado HYDROCHLOROTHIAZIDE 12.5 MG ORAL CAPSULE 1 by mouth every day - Carter Gallardo VITAMIN D (ERGOCALCIFEROL) 77593 UNIT ORAL CAPSULE One capsule by mouth [...] Gallardo " drug use, illicit Never Yasmin Ortega " alcohol use Never Yasmin Ortega " is there any chance that you could be ? No Yasmin Ortega " passive cigarette smoke exposure No Yasmin Ortega " smoking status never smoker Yasmin Ortega Exercise Program Referral T Carter Gallardo " [...] Disorder Questionnaire - Question 2 0 Yasmin Ortega " Generalized Anxiety Disorder Questionnaire - Question 1 0 Yasmin Ortega assessment of judgment and insight E&M intact Carter Gallardo " assessment of mood and affect E&M no depression, anxiety, or agitation Carter Gallardo " Generalized Anxiety Disorder Questionnaire - Question 2 0 Tatiana Silva " Generalized Anxiety Disorder Questionnaire - Question 1 0 Tatiana Diass assessment of judgment and insight E&M intact Carter Gallardo " assessment of mood and affect E&M no depression, anxiety, or agitation Carter Gallardo " Generalized Anxiety Disorder Questionnaire - Question 2 0 Tatianakayli Diass " Generalized Anxiety Disorder Questionnaire - Question 1 0 Tatiana Ricardo MEDICAL EQUIPMENT No Information Available FAMILY HISTORY No Information Available INSURANCE PROVIDERS Payer name Policy type / Coverage type Covered republican ID Sliding Fee - Cat 2 [employer] [id number] ADVANCE DIRECTIVES No Information Available TREATMENT PLAN Date Name Vitamin D, 25-Hydroxy Urine Culture, Routine Urinalysis with Micro on Positives Comp. Metabolic Panel (14) CBC With Differential/Platelet QuantiFERON TB Gold Plus Hemoglobin A1c Lipid Panel Comp. Metabolic Panel (14) CBC With Differential/Platelet - Est Patient Detailed - 81533 Vision Ultrasound, transvaginal Est Patient Detailed - 93708 Vaccines Ordered - Print Consent/Declination Forms Handling of specimen for transfer Venipuncture New Patient Detailed - 43875 HISTORY OF PROCEDURES Procedure Date Procedure Name Provider Procedure Notes Status Ultrasound, transvaginal Rickey Vicente Reason: Hx of Vaginal Spotting __ Anatomy Scan __ BPP __ Growth __ Dating __ Other completed Vaccines Ordered - Print Consent/Declination Forms Carter Gallardo completed Venipuncture Carter Gallardo completed GOALS No Information Available HEALTH CONCERNS No Information Available
--- OUTSIDE RECORDS SUMMARY | 2020-01-30 19:15 | XMS REPORT ---
Author Author Admin, [place] Organization Unknown Address Unknown Phone Unavailable PROBLEMS [...] Encounter Diagnosis - Ambulatory Encounter Carter Gallardo [facility] UNK - Ambulatory Encounter Carter Cook [facility] Rhinosinusitis, acuteAllergic rhinitis - Ambulatory Encounter Carter Gallardo [facility] UNK - Ambulatory Encounter Saray Butler [facility] UNK - Ambulatory Encounter Rickey Vicente [facility] UNK - Ambulatory [facility]ulatory Encounter Rickey Vicente Rekha A Pearce [facility] OB UNK - Ambulatory Encounter Rekha A Pearce [facility] OB UNK - Ambulatory Encounter Rickey Vicente Rekha A Pearce [facility] OB UNK - Ambulatory Encounter Florina Castaneda [facility] [employer] [facility] UNK - Ambulatory Encounter Yasmin Silva [facility] Vitamin D deficiency - Ambulatory Encounter Carter Gallardo [facility] Yasmin Ortega [facility] UNK - Ambulatory Encounter Carter Gallardo [facility], acuteVaginal spotting - Ambulatory Encounter Carter Gallardo [facility] UNK - Ambulatory Encounter Saray Butler Carter Gallardo [facility] Elevated creatinine - Ambulatory Encounter Carter VigilLogkarina [facility] Carter [facility] - Ambulatory Encounter Carter [facility] - [facility] - [facility] - [facility] Encounter Carter Puentescara Silva [facility] BMI 22.0- 22.9Rheumatoid arthritis, chronicHypertensionUrge [...] Status Fluzone Quadrivalent IM PF 0.5 ML [facility] [id number] Sanofi Pasteur 0.5 mL [id number] completed HISTORY OF MEDICATION USE Medication Instructions [...] day - Carter Gallardo VITAMIN D (ERGOCALCIFEROL) 06518 UNIT ORAL CAPSULE One capsule by mouth [...] Anxiety Disorder Questionnaire - Question 1 0 Ysamin Jordan assessment of judgment and insight E&M intact Carter Gallardo " assessment of mood and affect E&M no depression, anxiety, or agitation Carter Gallardo " Generalized Anxiety Disorder Questionnaire - Question 2 0 Tatianakayli Diass " Generalized Anxiety Disorder Questionnaire - Question 1 0 Tatianakayli Diass assessment of judgment and insight E&M [...] democrat ID Sliding Fee - Cat 2 [employer] [id number] ADVANCE DIRECTIVES No Information Available TREATMENT PLAN Date Name Vitamin D, 25-Hydroxy Urine Culture, Routine Urinalysis with Micro on Positives Comp. Metabolic Panel (14) CBC With Differential/Platelet QuantiFERON TB Gold Plus Hemoglobin A1c Lipid Panel Comp. Metabolic Panel (14) CBC With Differential/Platelet - Est Patient Detailed - 74049 Vision Ultrasound, transvaginal Est Patient Detailed - 36277 Vaccines Ordered - Print Consent/Declination Forms Handling of specimen for transfer Venipuncture New Patient Detailed - 25713 HISTORY OF PROCEDURES Procedure Date Procedure Name Provider Procedure Notes Status Ultrasound, transvaginal Rickey Vicente Reason: Hx of Vaginal Spotting __ Anatomy Scan __ BPP __ Growth __ Dating __ Other completed Vaccines Ordered - Print Consent/Declination Forms Carter Gallardo completed Venipuncture Carter Gallardo completed GOALS No Information Available HEALTH CONCERNS No Information Available
--- OUTSIDE RECORDS SUMMARY | 2020-01-30 19:16 | XMS REPORT ---
Author Author Admin, [place] Organization Unknown Address Unknown Phone Unavailable PROBLEMS Condition Status Date Provider Notes Urinary frequency active Aeneid William Parnell Postmenopausal bleeding active Aeneid William Parnell Cataract, bilateral active Carter Kade Dry eye [...] Encounter Diagnosis - Ambulatory [facility] Carter Mcarthur [facility] UNK - Ambulatory Encounter Aeneid William Parnell Aeneid Joseluis Parnell [facility] UNK - Ambulatory Encounter Aeneid William Parnell Aeneid Joseluis Parnell [facility] UNK - Ambulatory Encounter Aeneid William Parnell Aeneid Joseluis Parnell Ramona [facility] Postmenopausal bleedingUrinary frequency - Ambulatory Encounter Carter Kade Carter Kade [facility] UNK - Ambulatory Encounter Carter Kade Carter Kade [facility] UNK - Ambulatory Encounter Carter Kade Carter Kade [facility] UNK - Ambulatory Encounter Carter Kade Carter Kade Viola Moralez [facility] Hyperopia, bilateralAstigmatism, bilateralPresbyopia - OUDry eye syndrome, bilateralCataract, bilateral - Ambulatory Encounter Carter Gallardo [facility] UNK - Ambulatory [facility] Rhinosin[facility]itis, acuteAllergic rhinitis - Ambulatory Encounter Carter Gallardo [facility] UNK - Ambulatory Encounter Saray Butler [facility] UNK - Ambulatory [facility] - [facility] - Ambulatory Encounter Rickey Pearce [facility] OB UNK - Ambulatory Encounter Rekha Pearce [facility] OB UNK - Ambulatory Encounter Rickey Gainespeter Pearce [facility] OB UNK - Ambulatory Encounter Florina [place] [facility] UNK - Ambulatory Encounter Yasmin Gradyshiraz Simpson Ricardo [facility] Vitamin D deficiency - Ambulatory Encounter Carter Gallardo [facility] - Ambulatory Encounter Carter Gallardo [facility] UNK - Ambulatory Encounter Carter Gallardo [facility] Rhinosinusitis, acuteVaginal spotting - Ambulatory Encounter Carter Gallardo [facility] UNK - Ambulatory Encounter Saray Butler Carter Gallardo [facility] Elevated creatinine - Ambulatory Encounter Carter Gallardo [facility] Saray [facility] Ambulatory Encounter Carter VigilLogkarina [facility] UN[facility] - Ambulatory Encounter Carter Gallardo [facility] UNK - Ambulatory Encounter Carter [facility]ilLogkarina [facility] UNK - Ambulatory Encounter aCrter Gallardo [facility] UNK - Ambulatory Encounter Carter Gallardo [facility] UNK - Ambulatory Encounter Carter Gallardo Lore Helen Silva [facility] BMI 22.0- 22.9Rheumatoid arthritis, chronicHypertensionUrge incontinenceSjogren's syndromeSicca syndromeLung noduleOsteoporosisAbnormal cervical Pap ASCUS (atypical squamous cells undetermined significance) VITAL SIGNS Date Observation Value Provider blood pressure, diastolic, second observation 70 mm[Hg] Ramona Hansen " blood pressure, systolic, second observation 148 mm[Hg] Ramona Hansen " temperature E&M 98.0 [degF] Ramona Hansen " respiratory rate E&M 16 /min Ramona Hansen " pulse rate E&M 68 /min Ramona Hansen " blood pressure, diastolic 80 mm[Hg] Ramona Hansen " blood pressure, systolic 160 mm[Hg] Ramona Hansen " oxygen saturation, oximetry 98 % Ramona Hansen " method used to obtain blood pressure automatic Ramona Hansen " temperature site oral Ramona Hansen " Blood Pressure Position 01 sitting Ramona Hansen " blood pressure, site #1 left arm Ramona Hansen " weight E&M 111.60 lbs. Ramona Hansen " weight in kilograms E&M 50.73 kg Ramona Hansen " height E&M 60 [in_i] Ramona Hansen " height in centimeters E&M 152.40 cm Ramona Hansen respiratory rate E&M 16 /min Yasmin Ortega [...] used to obtain blood pressure automatic Tatiana Silva " Blood Pressure Position 01 sitting Tatiana Silva " blood pressure, site #1 right arm Tatiana Silva " oxygen saturation, oximetry 97 % Tatiana Silva " respiratory rate E&M 18 /min Tatiana Silva " pulse rate E&M 68 /min Tatiana Silva " temperature site oral Tatiana Silva " [...] Interpretation Location urine culture No growth [facility] glucose, urine, semiquantitative negative Ramona Hansen " specific gravity, urine 1.020 Ramona Hansen " protein, urine, semiquantitative (dipstick) negative Rmaona Hansen " leukocyte esterase, urine, by dipstick negative Ramona Hansen " bilirubin, urine negative Ramona Hansen " blood in urine (hemoglobin) by dipstick negative Ramona Hansen " urobilinogen, urine, semiquantitative (dipstick) negative Ramona Hansen " appearance, urine clear Ramona Hansen " nitrite, urine, semiquantitative negative Ramona Hansen " urine color light yellow Ramona Hansen " pH, urine, semiquantitative 5.0 Ramona Hansen " ketones, urine, by test strip negative Ramona Hansen beta HCG, urine, semiquantitative negative Rekha A [...] 11.1-15.9 " erythrocyte (RBC) count 4.09 X10E6/UL LinkLog 3.77-5.28 " leukocyte count, blood 6.4 X10E3/UL [facility] 3.4-10.8 Human Papillomavirus test result Negative Carter Gallardo HISTORY OF IMMUNIZATIONS Date Vaccine Dose Lot Number Status Fluzone Quadrivalent IM PF 0.5 ML [facility] [id number] Sanofi Pasteur 0.5 mL [id number] completed HISTORY OF MEDICATION USE Medication Instructions [...] day - Carter Gallardo VITAMIN D (ERGOCALCIFEROL) 28436 UNIT ORAL CAPSULE One capsule by mouth [...] Gallardo SOCIAL HISTORY Date Observation Value Provider social history reviewed E&M reviewed today Roslyn Parnell " smoking status never smoker Ramona Hansen " is there any chance that you could be ? No Ramona Hansen " passive cigarette smoke exposure No Ramona Hansen Exercise Program Referral T Carter Gallardo " Weight Management Counseling Provided T Carter Gallardo " Nutrition intervention T Carter Gallardo " drug use, illicit Never Yasmin Ortega " alcohol use Never Yasmin Ortega " is there any chance that you could be ? No Yasmin Ortega " passive cigarette smoke exposure No Yasmin rOtega " smoking status never smoker Yasimn Ortega Exercise Program Referral T Carter Gallardo " Weight Management Counseling Provided T aCrter Gallardo " Nutrition intervention T Carter Gallardo [...] affect E&M good eye contact, normal affect [facility] " mental status examination: orientation E&M alert and oriented to person, place, and [facility] of judgment and insight E&M intact [...] Questionnaire - Question 1 0 Tatiana Diass MEDICAL EQUIPMENT No Information Available FAMILY HISTORY No Information Available INSURANCE PROVIDERS Payer name Policy type / Coverage type Covered alliance party ID Sliding Fee - Cat 2 [employer] insurance [email or web address] [id number] ADVANCE DIRECTIVES No Information Available TREATMENT PLAN Date Name Urine Culture, Routine Vitamin D, 25-Hydroxy Urine Culture, Routine Urinalysis with Micro on Positives Comp. Metabolic Panel (14) CBC With Differential/Platelet QuantiFERON TB Gold Plus Hemoglobin A1c Lipid Panel Comp. Metabolic Panel (14) CBC With Differential/Platelet - - Xray - Chest - 2 Views - InHouse Urinalysis - Dip only - In House Est Patient Problem Focus - 00252 Routine ophthalmological examination including refraction; new patient Est Patient Detailed - 64600 Vision Ultrasound, transvaginal Est Patient Detailed - 99866 Vaccines Ordered - Print Consent/Declination Forms Handling of specimen for transfer Venipuncture New Patient Detailed - 98502 HISTORY OF PROCEDURES Procedure Date Procedure Name Provider Procedure Notes Status Urinalysis - Dip only - In House Roslyn Parnell completed Routine ophthalmological examination including refraction; new patient Carter Braun completed Ultrasound, transvaginal Rickey Vicente Reason: Hx of Vaginal Spotting __ Anatomy Scan __ BPP __ Growth __ Dating __ Other completed Vaccines Ordered - Print Consent/Declination Forms Carter Gallardo completed Venipuncture Carter Gallardo completed GOALS No Information Available HEALTH CONCERNS No Information Available
--- OUTSIDE RECORDS SUMMARY | 2020-01-30 19:16 | XMS REPORT ---
Author Author Admin, Walden Organization Unknown Address Unknown Phone Unavailable PROBLEMS [...] Location Encounter Diagnosis - Ambulatory Encounter Carter Mcarthur [facility] [place] Adult Medicine UNK - Ambulatory Encounter Aeneid William Parnell Aeneid Joseluis Parnell [facility] ERISA ATTORNEY UNK - Ambulatory Encounter Aeneid William Parnell Aeneid Joseluis Parnell [facility] ERISA ATTORNEY UNK - Ambulatory Encounter Aeneid William Parnell Aeneid Joseluis Parnell Ramona [facility] Postmenopausal bleedingUrinary frequency - Ambulatory Encounter Carter Kade Carter Kade [facility] [place] [facility] UNK - Ambulatory Encounter Carter Kade Carter Kade [facility] UNK - Ambulatory Encounter Carter Kade Carter Kade [facility] [place] [facility] UNK - Ambulatory Encounter Carter Kade Carter Kade Viola Moralez [facility] Hyperopia, bilateralAstigmatism, bilateralPresbyopia - OUDry eye syndrome, bilateralCataract, bilateral - Ambulatory Encounter [facility] - [facility] Rhinosinusitis, acuteAllergic rhinitis - Ambulatory Encounter [facility] UNK - Ambulatory Encounter Saray Butler [facility] UNK - Ambulatory Encounter Rickey Vicente [facility] UNK - Ambulatory Encounter Rickey Vicente [facility] UNK - Ambulatory Encounter Rickey Gainesce A Pearce [facility] UNK - Ambulatory Encounter Rekha A Pearce [facility] UNK - Ambulatory Encounter Rickey Vicente Rekha Sadler OB UNK - Ambulatory Encounter Florina [place] ERISA ATTORNEY UNK - Ambulatory Encounter Yasmin Barberalessandro Castelanyes [facility] Vitamin D deficiency - Ambulatory Encounter Carter Ortega [facility] UNK - Ambulatory Encounter Carter Gallardo [facility] UNK - [facility]inosinusitis, acuteVaginal spotting - Ambulatory Encounter Carter Gallardo [facility] UNK - Ambulatory Encounter Saray Butler Carter Gallardo [facility] Elevated creatinine - Ambulatory Encounter Carter Gallardo [facility] Saray Butler [facility] UNK - Ambulatory Encounter Carter Gallardo [facility] UNK - Ambulatory Encounter Carter Gallardo [facility] UNK - Ambulatory Encounter Carter [facility] UNK - Ambulatory Encounter Carter Gallardo [facility] UNK - Ambulatory Encounter Carter Gallardo [facility] UNK - Ambulatory Encounter Carter Gallardo Lore Cervantes Tatiana [facility] BMI 22.0- 22.9Rheumatoid arthritis, chronicHypertensionUrge incontinenceSjogren's syndromeSicca [...] blood pressure, site #1 left arm Yasmin Jordan " temperature site oral Yasmin Ortega " [...] Ricardo " blood pressure, diastolic 79 mm[Hg] aCrter Gallardo " blood pressure, systolic 156 mm[Hg] [...] Hansen " protein, urine, semiquantitative (dipstick) negative Ramona Hansen " leukocyte esterase, urine, by dipstick [...] Status Fluzone Quadrivalent IM PF 0.5 ML [facility] [place] [place] [address]-61 Sanofi Pasteur 0.5 mL [id number] completed HISTORY OF MEDICATION USE Medication Instructions [...] day - Carter Gallardo VITAMIN D (ERGOCALCIFEROL) 63717 UNIT ORAL CAPSULE One capsule by mouth [...] Roslyn Parnell " smoking status never smoker Ramonara Hansen " is there any chance that you could be ? No Ramona Hansen " passive cigarette smoke exposure No Ramona Hansen Exercise Program Referral T Carter Gallardo " Weight Management Counseling Provided T Carter Gallardo " Nutrition intervention T Carter Gallardo " drug use, illicit Never Yasmin Jordan " alcohol use Never Yasmin Jordan " is there any chance that you [...] affect E&M good eye contact, normal affect [facility] " mental status examination: orientation E&M alert and oriented to person, place, and time [facility] assessment of judgment and insight E&M intact [...] democrat ID Sliding Fee - Cat 2 [employer] insurance [employer] [id number] ADVANCE DIRECTIVES No Information Available TREATMENT PLAN [...] In House Est Patient Problem Focus - 21223 Routine ophthalmological examination including refraction; new patient Est Patient Detailed - 73600 Vision Ultrasound, transvaginal Est Patient Detailed - 67633 Vaccines Ordered - Print Consent/Declination Forms Handling of specimen for transfer Venipuncture New Patient Detailed - 08104 HISTORY OF PROCEDURES Procedure Date Procedure Name [...]
--- OUTSIDE RECORDS SUMMARY | 2020-01-30 19:16 | XMS REPORT ---
Author Author Admin, Iuka Organization Unknown Address Unknown Phone Unavailable PROBLEMS [...] Encounter Diagnosis - Ambulatory Encounter Carter Mcarthur [facility] [place] Adult Medicine UNK - Ambulatory Encounter Aeneid William Parnell Aeneid Joseluis Parnell [facility]kar[facility] PERSONNEL ADVISER UNK - Ambulatory Encounter Aeneid William Parnell Aeneid Joseluis Parnell [facility] [place] PERSONNEL ADVISER UNK - Ambulatory Encounter Aeneid William Parnell Aeneid Joseluis Parnell Ramona [facility] PERSONNEL [facility] Postmenopausal bleedingUrinary frequency - Ambulatory Encounter Carter Kade Carter Kade [facility] [place] [facility] UNK - Ambulatory Encounter Carter Kade Carter Kade [facility] [place] [facility] UNK - Ambulatory Encounter Carter Kade Carter Kade [facility] [place] [facility] UNK - Ambulatory Encounter Carter Kade Carter Kade Viola Moralez [facility] Hyperopia, bilateralAstigmatism, bilateralPresbyopia - OUDry eye syndrome, bilateralCataract, bilateral - Ambulatory Encounter [facility] - [facility] Rhinosinusitis, acuteAllergic rhinitis - Ambulatory Encounter [facility] - Ambulatory Encounter Saray [facility] - Ambulatory Encounter Rickey Vicente [facility] OB UNK - Ambulatory Encounter Rickey Vicente [facility] OB UNK - Ambulatory Encounter Rickey Gainesce A Pearce [facility] OB UNK - Ambulatory Encounter Rekha A Pearce [facility] OB UNK - Ambulatory Encounter Rickey Vicente Rekha Sadler OB UNK - Ambulatory Encounter Florina [place] PERSONNEL ADVISER UNK - Ambulatory Encounter Yasmin Barberalessandro Castelanyes [facility] Vitamin D deficiency - Ambulatory Encounter Carter Ortega [facility] Practice UNK - Ambulatory Encounter Carter Gallardo [facility] UNK - [facility] Rhinosinusitis, acuteVaginal spotting - Ambulatory Encounter Carter Gallardo [facility] UNK - Ambulatory Encounter Saray Butler Carter Gallardo [facility] Elevated creatinine - Ambulatory Encounter Carter Gallardo [employer] Saray Butler [facility] UNK - Ambulatory Encounter Carter Gallardo [facility]K - Ambulatory Encounter Carter Gallardo [facility] Practice UNK - Ambulatory Encounter Carter [facility]Logic [facility] UNK - Ambulatory Encounter Carter Gallardo [facility] UNK - Ambulatory Encounter Carter Gallardo [facility] UNK - Ambulatory Encounter Carter Gallardo Lore Cervantes Tatiana [facility] BMI 22.0- 22.9Rheumatoid arthritis, chronicHypertensionUrge [...] Tatiana Ricardo " temperature E&M 98.5 [degF] Taitana Ricardo " height E&M 61 [in_i] Tatiana [...] negative Ramona Hansen " bilirubin, urine negative Raomna Hansen " blood in urine (hemoglobin) by [...] Status Fluzone Quadrivalent IM PF 0.[address] [facility] [id number] Sanofi Pasteur 0.5 mL [id number] completed HISTORY OF MEDICATION USE Medication Instructions [...] day - Carter Gallardo VITAMIN D (ERGOCALCIFEROL) 35634 UNIT ORAL CAPSULE One capsule by mouth [...] E&M good eye contact, normal affect [facility] " mental status examination: orientation E&M alert and oriented to person, place, and time [facility] assessment of judgment and insight E&M [...] democrat ID Sliding Fee - Cat 2 [employer] insurance [employer] [id number] ADVANCE DIRECTIVES No Information Available TREATMENT PLAN [...] In House Est Patient Problem Focus - 72017 Routine ophthalmological examination including refraction; new patient Est Patient Detailed - 28766 Vision Ultrasound, transvaginal Est Patient Detailed - 41607 Vaccines Ordered - Print Consent/Declination Forms Handling of specimen for transfer Venipuncture New Patient Detailed - 24738 HISTORY OF PROCEDURES Procedure Date Procedure Name [...]
--- OUTSIDE RECORDS SUMMARY | 2020-01-30 19:16 | XMS REPORT ---
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 UNK - Ambulatory Encounter Aeneid William Parnell Aeneid Joseluis Hansen [facility] IVORY POLISHER Postmenopausal bleedingUrinary frequency - Ambulatory Encounter Carter Kade Carter Kade [facility] [place] [facility] UNK - Ambulatory Encounter Carter Kade Carter Kade [facility] [place] UNK - Ambulatory Encounter Carter Kade Carter Kade [facility] [place] UNK - Ambulatory Encounter Carter Kade Carter Kade Viola Moralez [facility] Hyperopia, bilateralAstigmatism, bilateralPresbyopia - OUDry eye syndrome, bilateralCataract, bilateral - Ambulatory Encounter Carter Gallardo [facility] UNK - Ambulatory Encounter Carter Cook [facility] Rhinosinusitis, acuteAllergic rhinitis - Ambulatory Encounter Carter Gallardo [facility] UNK - Ambulatory Encounter Saray Butler [facility] UNK - Ambulatory Encounter Rickey Vicente [facility] OB UNK - Ambulatory Encounter [facility] - Ambulatory Encounter Rickey Gainesce A Pearce [facility] OB UNK - Ambulatory Encounter Rekha A Pearce [facility] OB UNK - Ambulatory Encounter Rickey Gainesce A Pearce [facility] OB UNK - Ambulatory Encounter Florina Borges IVORY POLISHER UNK - Ambulatory Encounter Yasmin Silva [facility] Vitamin D deficiency - Ambulatory Encounter Carter Ortega [facility] UNK - Ambulatory Encounter Carter Gallardo [facility] UNK - Ambulatory Encounter Carter Hooverna Ricardo [facility] Rhinosinusitis, acuteVaginal spotting - Ambulatory Encounter Carter Gallardo [facility] UNK - Ambulatory Encounter Saray Butler Carter Gallardo [facility] Elevated creatinine - Ambulatory Encounter Carter Valero Saray Butler [facility] UNK - Ambulatory Encounter Carter Valero [facility] UNK - Ambulatory Encounter Carter Gallardo [facility] UNK - Ambulatory [facility] - [facility]ulatory Encounter Carter Gallardo [facility] UNK - Ambulatory Encounter Carter Gallardo [facility] UNK - Ambulatory Encounter Carter Gallardo Lore Cervantes Tatiana [facility] BMI 22.0- 22.9Rheumatoid arthritis, chronicHypertensionUrge incontinenceSjogren's syndromeSicca syndromeLung noduleOsteoporosisAbnormal cervical Pap ASCUS (atypical squamous cells undetermined significance) VITAL SIGNS Date Observation Value Provider blood pressure, diastolic, second observation 70 mm[Hg] Raomna Hansen " blood pressure, systolic, second observation [...] Yasmin Ortega " weight E&M 113 lbs. Yasminelsy Ortega " weight in kilograms E&M 51.36 kg Yasmin Ortega " method used to obtain blood pressure automatic Yasminelsy Ortega " Blood Pressure Position 01 sitting [...] Observation Value Provider Reference Range Interpretation Location glucose, urine, semiquantitative negative Ramona Hansen " specific gravity, urine 1.020 Ramona Hansen " protein, urine, semiquantitative (dipstick) negative Ramona Hansen " leukocyte esterase, urine, by dipstick negative Ramona Hansen " bilirubin, urine negative " blood in urine (hemoglobin) by dipstick negative Ramona Hansen " urobilinogen, urine, semiquantitative (dipstick) negative Ramona Hansen " appearance, urine clear " nitrite, urine, semiquantitative negative Ramona Hansen " urine color light yellow " pH, urine, semiquantitative 5.0 Ramona Hansen [...] Status Fluzone Quadrivalent IM PF 0.5 ML [facility] [address]-44 Sanofi Pasteur 0.5 mL [id number] completed HISTORY OF MEDICATION USE Medication Instructions [...] day - Carter Gallardo VITAMIN D (ERGOCALCIFEROL) 34299 UNIT ORAL CAPSULE One capsule by mouth [...] Provider social history reviewed E&M reviewed today Aecarmen Parnell " smoking status never smoker Ramona [...] affect E&M good eye contact, normal affect [facility] " mental status examination: orientation E&M alert and oriented to person, place, and time [facility] assessment of judgment and insight E&M intact [...] Disorder Questionnaire - Question 2 0 Tatianakayli Silva " Generalized Anxiety Disorder Questionnaire - Question 1 0 Tatiana Silva assessment of judgment and insight E&M intact Carter Gallardo " assessment of mood and affect E&M no depression, anxiety, or agitation Carter Gallardo " Generalized Anxiety Disorder Questionnaire - Question 2 0 Tatianakayli Silva " Generalized Anxiety Disorder Questionnaire - Question 1 0 Tatiana Ricardo MEDICAL EQUIPMENT No Information Available FAMILY HISTORY No Information Available INSURANCE PROVIDERS Payer name Policy type / Coverage type Covered republican ID Sliding Fee - Cat 2 [employer] insurance [employer] [id number] ADVANCE DIRECTIVES No Information Available TREATMENT PLAN Date Name Urine Culture, Routine Vitamin D, 25-Hydroxy Urine Culture, Routine Urinalysis with Micro on Positives Comp. Metabolic Panel (14) CBC With Differential/Platelet QuantiFERON TB Gold Plus Hemoglobin A1c Lipid Panel Comp. Metabolic Panel (14) CBC With Differential/Platelet - Urinalysis - Dip only - In House Est Patient Problem Focus - 60460 Routine ophthalmological examination including refraction; new patient Est Patient Detailed - 75393 Vision Ultrasound, transvaginal Est Patient Detailed - 01719 Vaccines Ordered - Print Consent/Declination Forms Handling of specimen for transfer Venipuncture New Patient Detailed - 14630 HISTORY OF PROCEDURES Procedure Date Procedure Name Provider Procedure Notes Status Urinalysis - Dip only - In House Aecarmen Parnell completed Routine ophthalmological examination including refraction; new patient Carter Braun completed Ultrasound, transvaginal Rickey Vicente Reason: Hx of Vaginal Spotting __ Anatomy Scan __ BPP __ Growth __ Dating __ Other completed Vaccines Ordered - Print Consent/Declination Forms Carter Gallardo completed Venipuncture Carter Gallardo completed GOALS No Information Available HEALTH CONCERNS No Information Available
--- OUTSIDE RECORDS SUMMARY | 2020-01-30 19:17 | XMS REPORT ---
Author Author [facility] Address Unknown Phone Unavailable Care Team Providers Care Ground Instructor Basic Name Role Phone Unavailable Unavailable Problems This patient has no known problems. Allergies, Adverse Reactions, Alerts This patient has no known allergies or adverse reactions. Medications This patient has no known medications. Encounters Start Date/Time End Date/Time Encounter Type Admission Type Attending [facility] Facility Care Department Encounter ID 2019-01-26 00:00:00 2019-01-26 00:00:00 Outpatient [facility] [id number] 2018-10-13 00:00:00 2018-10-13 00:00:00 Outpatient [facility] [id number] 2018-10-01 14:02:10 2018-10-01 14:02:10 Outpatient [facility] [id number] 2018-09-29 08:40:11 2018-09-29 08:40:11 Outpatient [facility] [id number] 2018-08-10 00:00:00 2018-08-10 00:00:00 Outpatient [facility] [id number] 2018-08-03 00:00:00 2018-08-03 00:00:00 Outpatient [facility] [id number] 2018-07-07 00:00:00 2018-07-07 00:00:00 Outpatient [facility] [id number] 2018-06-22 12:37:13 2018-06-22 12:37:13 Outpatient [facility] [id number] 2018-06-11 09:00:42 2018-06-11 09:00:42 Outpatient [facility] [id number] 2018-06-02 14:42:22 2018-06-02 14:42:22 Outpatient [facility] [id number] 2018-05-28 10:38:17 2018-05-28 10:38:17 Outpatient [facility] [id number] 2018-05-26 10:15:58 2018-05-26 10:15:58 Outpatient [facility] [id number] 2018-05-26 00:00:00 2018-05-26 00:00:00 Outpatient [facility] [id number] 2018-05-21 14:22:35 2018-05-21 14:22:35 Outpatient [facility] [id number] 2018-05-15 00:00:00 2018-05-15 00:00:00 Outpatient [facility] [id number] 2018-05-12 13:00:34 2018-05-12 13:00:34 Outpatient [facility] [id number] 2018-05-12 08:35:46 2018-05-12 08:35:46 Outpatient [facility] [id number] 2018-05-12 07:41:04 2018-05-12 07:41:04 Outpatient [facility] [id number] 2018-05-07 00:00:00 2018-05-07 00:00:00 Outpatient [facility] [id number] 2018-04-15 13:34:35 2018-04-15 13:34:35 Outpatient [facility] [id number] 2018-02-24 00:00:00 2018-02-24 00:00:00 Outpatient [facility] [id number] 2017-12-26 00:00:00 2017-12-26 00:00:00 Outpatient [facility] [id number] 2017-12-04 00:00:00 2017-12-04 00:00:00 Outpatient [facility] [id number] 2017-10-24 09:39:21 2017-10-24 09:39:21 Outpatient [facility] [id number] 2017-10-15 09:22:59 2017-10-15 09:22:59 Outpatient [facility] [id number] 2017-10-15 07:47:50 2017-10-15 07:47:50 Outpatient [facility] [id number] 2017-09-30 13:12:00 2017-09-30 13:12:00 Outpatient [facility] [id number] 2017-08-20 09:36:51 2017-08-20 09:36:51 Outpatient [facility] [id number] 2017-08-15 09:20:24 2017-08-15 09:20:24 Outpatient [facility] [id number] 2017-07-08 00:00:00 2017-07-08 00:00:00 Outpatient [facility] [id number] 2017-06-30 00:00:00 2017-06-30 00:00:00 Outpatient [facility] [id number] 2017-06-23 00:00:00 2017-06-23 00:00:00 Outpatient [facility] [id number] 2017-06-19 10:31:11 2017-06-19 10:31:11 Outpatient [facility] [id number] 2017-06-18 00:00:00 2017-06-18 00:00:00 Outpatient [facility] [id number] 2017-06-16 11:26:23 2017-06-16 11:26:23 Outpatient [facility] [id number] 2017-06-12 10:43:59 2017-06-12 10:43:59 Outpatient [facility] [id number] 2017-06-12 10:33:35 2017-06-12 10:33:35 Outpatient [facility] [id number] 2017-06-12 08:20:34 2017-06-12 08:20:34 Outpatient [facility] [id number] 2017-06-12 00:00:00 2017-06-12 00:00:00 Outpatient [facility] [id number] 2017-05-27 14:26:31 2017-05-27 14:26:31 Outpatient [facility] [id number] 2017-05-07 00:00:00 2017-05-07 00:00:00 Outpatient [facility] [id number] 2017-04-16 00:00:00 2017-04-16 00:00:00 Outpatient [facility] [id number] 2017-04-02 09:02:55 2017-04-02 09:02:55 Outpatient [facility] [id number] 2017-04-01 09:26:24 2017-04-01 09:26:24 Outpatient [facility] [id number] 2017-03-28 11:51:06 2017-03-28 11:51:06 Outpatient [facility] [id number] 2017-03-19 09:16:07 2017-03-19 09:16:07 Outpatient [facility] [id number]
--- OUTSIDE RECORDS SUMMARY | 2020-01-30 19:17 | XMS REPORT ---
Author Author Admin, Donalds Organization Unknown Address Unknown Phone Unavailable PROBLEMS [...] Provider Location Encounter Diagnosis - Ambulatory Encounter Kaylen Saucedo [place] SURGICAL COORDINATOR UNK [facility] - [facility] Encounter Kaylen Vierape [facility] SURGICAL COORDINATOR UNK - Ambulatory Encounter Carter Gallardo [facility] UNK - [facility] Carter Mcarthur [facility] UNK - Ambulatory Encounter Aeneid William [facility]arnell [facility] COORD[facility] UNK - Ambulatory Encounter Aeneid William Parnell Aeneid Pedrue- Nicolás Parnell [facility] SURGICAL COORDINATOR UNK - Ambulatory Encounter Aeneid William Parnell Aeneid Perdue- Jiu Parnell Ramona Hansen [facility] SURGICAL COORDINATOR Postmenopausal bleedingUrinary frequency - Ambulatory Encounter Carter Kade Carter Kade [facility] UNK - Ambulatory Encounter Carter Kade Carter Kade [facility] UNK - Ambulatory Encounter Carter Kade Carter Kade [facility] UNK - Ambulatory Encounter Carter Kade Carter Kade Viola Moralez [facility] Hyperopia, bilateralAstigmatism, bilateralPresbyopia - OUDry eye syndrome, bilateralCataract, bilateral - Ambulatory Encounter Carter Gallardo [facility] UNK - Ambulatory Encounter Carter Moss[facility] Rhinosinusitis, acuteAllergic rhinitis - Ambulatory Encounter [facility] - [facility] Encounter Saray Butler [facility] Practice UNK - Ambulatory Encounter Rickey Cheema [place] [facility] OB UNK - Ambulatory Encounter Rickey Cheema [place] [facility] OB UNK - Ambulatory Encounter Rickey Cheema [place] [facility] Rekha A Pearce [facility] OB UNK - Ambulatory Encounter Rekha A Pearce [facility] OB UNK - Ambulatory Encounter Rickey Vicente Rekha A Pearce [facility] OB UNK - Ambulatory Encounter Florina Borges SURGICAL COORDINATOR UNK - Ambulatory Encounter Yasmin Silva [facility] Vitamin D deficiency - Ambulatory Encounter Carter Ortega [facility] UNK - Ambulatory Encounter Carter Gallardo [facility] Practice UNK - [facility] Rhinosinusitis, acuteVaginal spotting - Ambulatory Encounter Carter Gallardo [facility] Practice UNK - Ambulatory Encounter Saray Butler Carter Gallardo [facility] Elevated creatinine - Ambulatory Encounter Carter Valero [facility] - [facility] Encounter Carter Gallardo [facility] UNK - Ambulatory Encounter Carter Gallardo [facility] UNK - Ambulatory Encounter Carter Gallardo [facility] UNK - Ambulatory Encounter Carter Gallardo [facility] UNK - Ambulatory Encounter Carter Gallardo Lore Cervantes Tatiana Ricardo [facility] BMI 22.0- 22.9Rheumatoid arthritis, chronicHypertensionUrge incontinenceSjogren's syndromeSicca syndromeLung noduleOsteoporosisAbnormal cervical Pap ASCUS (atypical squamous cells undetermined significance) VITAL SIGNS Date Observation Value Provider blood pressure, diastolic, second observation 95 mm[Hg] Lore White " blood pressure, systolic, second observation 188 mm[Hg] Lore White " oxygen saturation, oximetry 98 % Lore Jojo " method used to obtain blood pressure automatic Lore Uribe " Blood Pressure Position 01 sitting Lore Jojo " blood pressure, site #1 left arm Lore White " blood pressure, diastolic 102 mm[Hg] Lore White " blood pressure, systolic 183 mm[Hg] Lore White " pulse rate E&M 86 /min Lore White " temperature site oral Lore White " temperature E&M 98.3 [degF] Lore White " weight E&M 111.13 lbs. Lore White " weight in kilograms E&M 50.51 kg Lore Jojo " height E&M 60 [in_i] Lore White " height in centimeters E&M 152.40 cm Lore Uribe blood pressure, diastolic, second observation 70 mm[Hg] [...] " height in centimeters E&M 152.40 cm Yasminelsy Ortega method used to obtain blood pressure [...] height in centimeters E&M 154.94 cm Tatiana Diass Allergies No Known Allergy Information REASON FOR REFERRAL No Information Available RESULTS Date Observation Value Provider Reference Range Interpretation Location urine culture No growth [employer] glucose, urine, semiquantitative negative Ramona Hansen " specific gravity, urine 1.020 Hansen " protein, urine, semiquantitative (dipstick) negative Ramona Hansen " leukocyte esterase, urine, by dipstick negative " bilirubin, urine negative " blood in urine (hemoglobin) by dipstick negative Ramona Hansen " urobilinogen, urine, semiquantitative (dipstick) negative Ramona Hansen " appearance, urine clear " nitrite, urine, semiquantitative negative Ramona Hansen " urine color light yellow Hansen " pH, urine, semiquantitative 5.0 Ramona Hansen " ketones, urine, by test strip negative Ramona Hansen beta HCG, urine, semiquantitative negative Rekha Pearce [...] Fluzone Quadrivalent IM PF 0.[address] [facility] [address]-09 [employer] P[employer] 0.5 mL [id number] completed HISTORY OF MEDICATION USE Medication Instructions [...] day - Carter Gallardo VITAMIN D (ERGOCALCIFEROL) 47969 UNIT ORAL CAPSULE One capsule by mouth [...] Gallardo SOCIAL HISTORY Date Observation Value Provider smoking status never smoker Kaylen Govea " Exercise Program Referral Bruce Govea " Weight Management Counseling Provided T Kaylen Govea " Nutrition intervention T Kaylen Govea " is there any chance that you could be ? No Lore Uribe " passive cigarette smoke exposure No Lore Uribe " if the patient is using/has used a vaping item, Current, Former, Never Used, Not asked No Lore Uribe social history reviewed E&M reviewed today Roslyn [...] passive cigarette smoke exposure No Tatiana Silva Exercise Program Referral T Carter Gallardo " Weight Management Counseling Provided T Carter Gallardo " Nutrition intervention T Carter Gallardo " is there any chance that you could be ? No Tatianakayli Silva " passive cigarette smoke exposure No Tatiana Silva FUNCTIONAL STATUS No Information Available MENTAL STATUS Date Observation Value Provider Generalized Anxiety Disorder Questionnaire - Question 2 0 Lore Uribe " Generalized Anxiety Disorder Questionnaire - Question 1 0 Lore Uribe assessment of mood and affect E&M good eye contact, normal affect [facility] " mental status examination: orientation E&M alert and oriented to person, place, and time [facility] assessment of judgment and insight E&M [...] party ID Sliding Fee - Cat 2 [employer] [id number] ADVANCE DIRECTIVES No Information Available TREATMENT PLAN Date Name Urine Culture, Routine Vitamin D, 25-Hydroxy Urine Culture, Routine Urinalysis with Micro on Positives Comp. Metabolic Panel (14) CBC With Differential/Platelet QuantiFERON TB Gold Plus Hemoglobin A1c Lipid Panel Comp. Metabolic Panel (14) CBC With Differential/Platelet - - Est Patient Exp Problem - 26781 Xray - Chest - 2 Views - InHouse Urinalysis - Dip only - In House Est Patient Problem Focus - 62022 Routine ophthalmological examination including refraction; new patient Est Patient Detailed - 05578 Vision Ultrasound, transvaginal Est Patient Detailed - 23901 Vaccines Ordered - Print Consent/Declination Forms Handling of specimen for transfer Venipuncture New Patient Detailed - 71719 HISTORY OF PROCEDURES Procedure Date Procedure Name [...]
[2020-01-30] MEDS ORDERED: HYDRALAZINE HCL 20 MG/ML VIAL IV STA (19:22)
[2020-01-30 19:47] LABS: BASOPHILS % 0.3 % (0.0-1.0); EOSINOPHILS % 0.9 % (0.0-6.0); HEMATOCRIT 38.1 % (34.2-44.1); HEMOGLOBIN 12.3 g/dL (12.0-16.0); LYMPHOCYTES # (AUTO) 0.8 (1.0-3.2); LYMPHOCYTES % 24.6 % (18.0-39.1); MEAN CORPUSCULAR HEMOGLOBIN 29.4 pg (28-32); MEAN CORPUSCULAR HGB CONC 32.3 g/dL (31-35); MEAN CORPUSCULAR VOLUME 90.9 fL (81-99); MONOCYTES # (AUTO) 0.1 (0.2-0.8); MONOCYTES % 3.1 % (4.4-11.3); NEUTROPHILS # (AUTO) 2.3 (2.1-6.9); NEUTROPHILS % 70.5 % (38.7-80.0); PLATELET COUNT 266 x10e3/uL (140-360); RED BLOOD COUNT 4.19 x10e6/uL (3.6-5.1); RED CELL DISTRIBUTION WIDTH 12.7 % (11.7-14.4)
[2020-01-30 19:57] LABS: INR 0.93
[2020-01-30 19:58] LABS: PARTIAL THROMBOPLASTIN TIME 27.1 seconds (23.8-35.5)
[2020-01-30 20:09] LABS: ALANINE AMINOTRANSFERASE 15 IU/L (0-55); ALBUMIN 3.4 g/dL (3.5-5.0); ALBUMIN/GLOBULIN RATIO 0.9 (0.8-2.0); ALKALINE PHOSPHATASE 109 IU/L (40-150); ANION GAP 10.2 mmol/L (8-16); BLOOD UREA NITROGEN 16 mg/dL (7-26); BUN/CREATININE RATIO 17 (6-25); CALCIUM 9.3 mg/dL (8.4-10.2); CARBON DIOXIDE 25 mmol/L (22-29); CHLORIDE 104 mmol/L (98-107); CREATINE KINASE 17 IU/L (29-168); CREATININE, SERUM 0.93 mg/dL (0.57-1.11); EST GLOMERULAR FILTRATION RATE > 60 ML/MIN (60-); GLUCOSE 101 mg/dL (74-118); POTASSIUM 4.2 mmol/L (3.5-5.1); SODIUM 135 mmol/L (136-145)
--- NOTE | 2020-01-30 20:37 | Diagnostic Imaging Report ---
History:Headache Comparison studies:None Technique: Axial images were obtained from the skull base to the vertex. Coronal and sagittal images reconstructed from the axial data. Intravenous contrast: None Dose modulation, iterative reconstruction, and/or weight based adjustment of the mA/kV was utilized to reduce the radiation dose to as low as reasonably achievable. Findings: Scalp/skull: No abnormalities. Extra-axial spaces: No masses. No fluid collections. Brain sulci: Mildly prominent. Ventricles: Age-appropriate. No hydrocephalus. Parenchyma: Few hypodensities in the supratentorial white matter are small vessel ischemic changes. No masses, hemorrhage, acute or chronic cortical vascular insults. Sellar/suprasellar region: No abnormalities. Craniocervical junction: Patent foramen magnum. No Chiari one malformation. Incidental findings: Atherosclerotic calcifications in the carotid siphons . Impression: No acute abnormalities. Chronic findings: 1. Mild generalized volume loss. 2. Mild supratentorial white matter small vessel ischemic changes. Signed by: DR Seymour Vargas M.D. on 01/30/2020 8:34 PM
--- NOTE | 2020-01-30 21:32 | Diagnostic Imaging Report ---
EXAMINATION: CHEST SINGLE (PORTABLE) INDICATION: High blood pressure COMPARISON: None FINDINGS: TUBES and LINES: None. LUNGS: Hyperinflated lungs. Mild central bronchial wall thickening. Prominent central pulmonary vasculature. PLEURA: No pleural effusion or pneumothorax. HEART AND MEDIASTINUM: The cardiomediastinal silhouette is unremarkable. BONES AND SOFT TISSUES: Degenerative changes in the spine and shoulders. Soft tissues are unremarkable. UPPER ABDOMEN: No free air under the diaphragm. IMPRESSION: Findings of pulmonary emphysema and bronchitis. Pulmonary vascular congestion. Signed by: Cory Burt DO on 01/30/2020 9:28 PM
[2020-01-30 22:21] VITALS: BP 131/79
== END 2020-01-30 22:21 | disposition home or self-care (01) ==
LOC: ER 19:12
DX: R51 Headache (principal); I10 Essential (primary) hypertension; Z83.3 Family history of diabetes mellitus; Z82.49 Family history of ischemic heart disease and other diseases of the circulatory system; M19.90 Unspecified osteoarthritis, unspecified site; Z88.8 Allergy status to other drugs, medicaments and biological substances
CPT/HCPCS: 36415; 70450; 71045; 80053; 82550; 82553; 84484; 85025; 85610; 85730; 93005; 99284; J0360